=== PATIENT | male | born 2000 | race Caucasian/White ===

== ENCOUNTER 2022-04-08 14:51 | Outpatient (CLI) | payer BC ==
[2022-04-08 15:58] LABS: Hemoglobin 15.9 g/dL (13.5-17.5); Mean Corpuscular HGB CONC 34.9 g/dL (32.0-36.0); Mean Corpuscular Hemoglobin 29.9 pg (27.0-33.0); Mean Corpuscular Volume 85.7 fl (81.2-95.1); Mean Platelet Volume 9.5 fl (7.4-10.4); Platelet Count 285 10x3/uL (150-450); RBC Distribution Width 12.5 % (11.5-14.5); Red Blood Cell (RBC) Count 5.32 10x6/uL (4.32-5.72); White Blood Cell (WBC) Count 6.5 10x3/uL (3.5-10.5)
== END 2022-04-08 14:52 | disposition home or self-care (01) ==
LOC: LABBT 14:51
PROVIDERS: ATTEND Orthopaedic Surgery Hand Surgery
DX: Z01.812 Encounter for preprocedural laboratory examination (principal); S62.601A Fracture of unspecified phalanx of left index finger, initial encounter for closed fracture
CPT/HCPCS: 85027

== ENCOUNTER 2022-04-10 10:46 | Day surgery (SDC) | payer BC ==
[2022-04-08 16:08] VITALS: BMI 22.4
[2022-04-10] MEDS ORDERED: fentaNYL PF 100 MCG/2 ML SYRINGE ONE (12:23)
[2022-04-10] MEDS ORDERED: Bacitracin Zinc Ointment 30 gm TUBE ONE (12:28)
[2022-04-10] MEDS ORDERED: Betamet Acet/Betamet Na Ph 30 MG/5 ML VIAL ONE (12:28)
[2022-04-10] MEDS ORDERED: Bupivacaine PF 0.5% 30 ML VIAL ONE (12:28)
[2022-04-10] MEDS ORDERED: Sodium Chloride 0.9% 100 ML ONE (12:44)
[2022-04-10] MEDS ORDERED: CEFAZOLIN 2 GM VIAL ONE (12:44)
[2022-04-10] MEDS ORDERED: Midazolam HCl 2 mg/2 ml Vial ONE (13:29)
[2022-04-10] MEDS ORDERED: Lidocaine 1% PF 5 ML VIAL ONE (13:42)
[2022-04-10] MEDS ORDERED: PROPOFOL 200 MG/20 ML VIAL ONE (13:42)
[2022-04-10] MEDS ORDERED: ePHEDrine 50 MG/ML VIAL ONE (13:42)
[2022-04-10] MEDS ORDERED: Ondansetron PF 4 MG/2 ML Vial ONE (13:42)
[2022-04-10] MEDS ORDERED: Dexamethasone 20 MG/5 ML VIAL ONE (13:42)
[2022-04-10] MEDS ORDERED: Ketorolac Tromethamine 30 MG/ML VIAL ONE (15:48)
== END 2022-04-10 16:40 | disposition home or self-care (01) ==
LOC: SDC 10:46
PROVIDERS: ATTEND Orthopaedic Surgery Hand Surgery
PROC: 0PSV04Z Reposition Left Finger Phalanx with Internal Fixation Device, Open Approach (ICD-10-PCS; principal; 2022-04-10)
DX: S62.617A Displaced fracture of proximal phalanx of left little finger, initial encounter for closed fracture (principal); Z86.16 Personal history of COVID-19; X50.0XXA Overexertion from strenuous movement or load, initial encounter
CPT/HCPCS: C1713; J0702; J1100; J1885; J2250; J2405; J2704; J3490; S0020